=== PATIENT | female | born 1970 | race Caucasian/White ===

== ENCOUNTER 2023-02-13 10:16 | Day surgery (SDC) | payer OTHER ==
[~2023-02-13] VITALS: Ht 154.9 cm; Wt 74.8 kg
[2023-02-13] MEDS ORDERED: LIDOCAINE 2% 100 MG/5 ML UJET TP ONE (11:39)
[2023-02-13] MEDS ORDERED: fentaNYL citrate 0.05 MG/ML VIAL ONE (11:39)
== END 2023-02-13 13:00 | disposition home or self-care (01) ==
LOC: MDS 10:16 → MMU 10:18 → MDS 13:00
PROVIDERS: ATTEND Internal Medicine Gastroenterology
DX: Z12.11 Encounter for screening for malignant neoplasm of colon (principal); J45.909 Unspecified asthma, uncomplicated; E78.00 Pure hypercholesterolemia, unspecified; Z79.899 Other long term (current) drug therapy
CPT/HCPCS: 45378; J3010